=== PATIENT | female | born 1980 | race Caucasian/White ===

== ENCOUNTER → 2018-12-20 | Outpatient (CLI) | payer OTHER ==
--- NOTE | 2018-12-20 13:17 | RADIOLOGY REPORT (SQ) ---
EXAM DESCRIPTION: DUPLEX ART/MANUEL FLOW COMPLETE COMPLETED DATE/TIME: 12/20/2018 9:13 am REASON FOR STUDY: HTN/DAWIT I70.1 ATHEROSCLEROSIS OF RENAL ARTERY COMPARISON: None. TECHNIQUE: Realtime and static grayscale images acquired. Selected color Doppler, velocities and spe ctral images recorded. LIMITATIONS: None. FINDINGS: RIGHT KIDNEY: RENAL ARTERY VELOCITIES: Origin and mid renal artery not visualized. 73 cm/second at the hilum. Seg mental artery velocity 48 cm/sec. RENAL VEIN: Color doppler flow present, patent. VELOCITY RATIO: 0.79. Normal waveforms. KIDNEY: Normal in size measuring 10.8 cm No significant pathology. LEFT KIDNEY: RENAL ARTERY VELOCITIES: Origin and a mid renal artery not visualized. 59 cm/second at the hilum. S egmental artery velocity 37 cm/sec. RENAL VEIN: Color doppler flow present, patent. VELOCITY RATIO: 0.63. Normal waveforms. KIDNEY: Normal in size measuring 10.8 cm No significant pathology. BLADDER: Not imaged. OTHER: Aorto velocity of 92 cm/second. IMPRESSION: No Doppler evidence of hemodynamically significant renal artery stenosis. No evidence of hydronephrosis or obstructive uropathy. COMMENT: NORMAL RENAL ARTERY/AORTA VELOCITY RATIO IS LESS THAN OR EQUAL TO 3.5. TECHNICAL DOCUMENTATION: JOB ID: [id number] [employer]- All Rights Reserved Reading location - IP/workstation name: [email or web address]
== END ==
LOC: RAD 08:08
PROVIDERS: ATTEND Internal Medicine Clinical Cardiac Electrophysiology
DX: I70.1 Atherosclerosis of renal artery (principal)
CPT/HCPCS: 93975

== ENCOUNTER → 2020-06-04 | Outpatient (CLI) | payer OTHER ==
[2020-06-04 15:00] LABS: ABSOLUTE EOSINOPHILS # (AUTO) 0.3 10^3/uL (0.0-0.6); ABSOLUTE LYMPHOCYTES (AUTO) 1.8 10^3/uL (0.5-4.7); ABSOLUTE MONOCYTES (AUTO) 0.5 10^3/uL (0.1-1.4); ABSOLUTE NEUT (AUTO) 3.3 10^3/uL (1.7-8.2); BASOPHILS % (AUTO) 0.5 % (0-2); EOSINOPHILS % (AUTO) 4.6 % (0-6); HEMATOCRIT 31.7 % (36.0-47.0); HEMOGLOBIN 10.6 g/dL (12.0-15.5); LYMPHOCYTES % (AUTO) 29.8 % (13-45); MEAN CORPUSCULAR HEMOGLOBIN 27.9 pg (27.0-33.4); MEAN CORPUSCULAR HGB CONC 33.5 g/dL (32.0-36.0); MEAN CORPUSCULAR VOLUME 83 fl (80-97); MONOCYTES % (AUTO) 8.4 % (3-13); PLATELET COUNT 270 10^3/uL (150-450); RED CELL DISTRIBUTION WIDTH 17.4 % (11.5-14.0); SEGMENTED NEUTROPHILS % (AUTO) 56.7 % (42-78); TOTAL CELLS COUNTED % (AUTO) 100 %; WHITE BLOOD COUNT 5.9 10^3/uL (4.0-10.5)
[2020-06-04 15:06] LABS: APPEARANCE,URINE SLIGHTLY-CLOUDY; BILIRUBIN,URINE NEGATIVE (NEGATIVE); COLOR,URINE YELLOW; GLUCOSE, URINE NEGATIVE (NEGATIVE); KETONES,URINE NEGATIVE (NEGATIVE); LEUKOCYTE ESTERASE,URINE MODERATE (NEGATIVE); NITRITE,URINE NEGATIVE (NEGATIVE); PROTEIN,URINE NEGATIVE (NEGATIVE); UROBILINOGEN,URINE NEGATIVE mg/dL (<2.0)
[2020-06-04 15:18] LABS: ALBUMIN 4.8 g/dL (3.5-5.0); ALKALINE PHOSPHATASE 161 U/L (38-126); ANION GAP 12 (5-19); ASPARTATE AMINO TRANSFERASE 87 U/L (14-36); BILIRUBIN,DIRECT 0.3 mg/dL (0.0-0.4); BILIRUBIN,TOTAL 0.6 mg/dL (0.2-1.3); BLOOD UREA NITROGEN 31 mg/dL (7-20); CALCIUM 9.7 mg/dL (8.4-10.2); CARBON DIOXIDE 26 mmol/L (22-30); CHLORIDE 101 mmol/L (98-107); GLUCOSE 141 mg/dL (75-110); POTASSIUM 4.8 mmol/L (3.6-5.0); TOTAL PROTEIN 8.4 g/dL (6.3-8.2)
[2020-06-04 15:25] LABS: UR PRO/CREAT RATIO RESULT 0.2 mg/mg (0.0-0.2); URINE CREATININE 61.8 mg/dL (15-278); URINE PROTEIN 14.3 mg/dL (<12)
== END ==
LOC: OD 14:25
PROVIDERS: ATTEND Internal Medicine Nephrology
DX: I12.9 Hypertensive chronic kidney disease with stage 1 through stage 4 chronic kidney disease, or unspecified chronic kidney disease (principal); N18.3 Chronic kidney disease, stage 3 (moderate); N25.0 Renal osteodystrophy; R80.9 Proteinuria, unspecified
CPT/HCPCS: 36415; 80053; 81001; 82570; 83970; 84100; 84156; 85025